=== PATIENT | male | born 1975 | race Caucasian/White ===

== ENCOUNTER 2018-09-15 21:48 | Observation (INO) | payer SELFPAY ==
[2018-09-15 22:20] LABS: Amphetamine Not Detected (NotDetected); Barbiturates Screen Not Detected (NotDetected); Benzodiazepine Screen Not Detected (NotDetected); Cocaine Metabolite Screen Not Detected (NotDetected); Medtox Control Line Valid? VALID (VALID); Medtox Reader # READER 4; Methadone Not Detected (NotDetected); Methamphetamine Not Detected (NotDetected); Opiate Screen Not Detected (NotDetected); Oxycodone Screen Not Detected (NotDetected); Phencyclidine (PCP) Not Detected (NotDetected); THC/Cannabinoid Screen Not Detected (NotDetected); Tricyclic Screen Not Detected (NotDetected)
[2018-09-15 22:28] LABS: #Basophils 0.1 thou/uL (0.0-0.2); #Eosinphils 0.5 thou/uL (0.0-0.7); #Lymphocytes 2.7 thou/uL (1.20-3.40); #Monocytes 0.7 thou/uL (0.11-0.59); %Eosinophils 7.3 % (0.0-10.0); %Lymphocytes 38.4 % (21.0-51.0); %Monocytes 9.5 % (0.0-10.0); %Neutrophils 43.8 % (42.0-75.0); Hemoglobin 14.6 g/dL (14.0-18.0); Mean Corpuscular HGB CONC 32.4 g/dL (32.0-36.0); Mean Corpuscular Hemoglobin 32.7 pg (27.0-31.0); Mean Platelet Volume 7.2 fL (7.4-10.4); Platelet Count 276 thou/uL (130-400); RBC Distribution Width 14.9 % (11.5-14.5); Red Blood Cell (RBC) Count 4.46 mill/uL (4.70-6.10); White Blood Cell (WBC) Count 6.9 thou/uL (4.8-10.8)
[2018-09-15 22:46] LABS: Acetaminophen Less than 6.0 mcg/mL (10.0-30.0); Alcohol 217 mg/dL (Less than 10); Salicylate Less than 8.0 mg/dL (15.0-30.0)
[2018-09-15 22:50] LABS: ALT (SGPT) 17 U/L (8-55); AST (SGOT) 30 U/L (5-34); Albumin 4.5 g/dL (3.5-5.0); Alkaline Phosphatase 81 U/L (40-150); Anion Gap 12 mmol/L (10-20); BUN (Urea Nitrogen) 6 mg/dL (8.9-20.6); Bilirubin, Total 0.3 mg/dL (0.2-1.2); Calc. Creatinine Clearance 0 mL/min (70-130); Calcium 9.1 mg/dL (7.8-10.44); Carbon Dioxide 30 mmol/L (22-29); Chloride 106 mmol/L (98-107); Estimated GFR-MDRD 89; Globulin 2.6 g/dL (2.4-3.5); Glucose 101 mg/dL (70-105); Protein, Total 7.1 g/dL (6.0-8.3); Sodium 144 mmol/L (136-145)
[2018-09-16] MEDS ORDERED: chlordiazePOXIDE HCl 25 MG CAP ONE (00:10)
[2018-09-16] MEDS ORDERED: Acetaminophen 325 MG TAB PO PRN (00:36)
[2018-09-16] MEDS ORDERED: Senokot S 8.6-50 MG TAB PO PRN (00:36)
[2018-09-16] MEDS ORDERED: Lorazepam 2 MG/ML VIAL SLOW IVP PRN (00:38)
[2018-09-16] MEDS ORDERED: Lorazepam 2 MG/ML VIAL ONE (00:42)
[2018-09-16] MEDS ORDERED: Multivitamins, Adult 10 ML, Thiamine HCl 100 MG, Folic Acid 1 MG in Dextrose 5 %-0.45 %... IV ONE (00:45)
[2018-09-16 01:31] VITALS: BMI 31.6
[2018-09-16] MEDS: Multivitamins, Adult 10 ML, Folic Acid 1 MG, Thiamine HCl 100 MG in Dextrose 5 %-0.45 %... IV SCH (01:45)
[2018-09-16 06:07] LABS: #Basophils 0.1 thou/uL (0.0-0.2); #Eosinphils 0.4 thou/uL (0.0-0.7); #Lymphocytes 2.2 thou/uL (1.20-3.40); #Monocytes 0.7 thou/uL (0.11-0.59); #Neutrophils 2.4 thou/uL (1.40-6.50); %Basophils 1.1 % (0.0-1.0); %Eosinophils 7.6 % (0.0-10.0); %Lymphocytes 38.3 % (21.0-51.0); %Monocytes 11.5 % (0.0-10.0); %Neutrophils 41.5 % (42.0-75.0); Hemoglobin 13.6 g/dL (14.0-18.0); Mean Corpuscular HGB CONC 32.7 g/dL (32.0-36.0); Mean Corpuscular Hemoglobin 33.4 pg (27.0-31.0); Mean Platelet Volume 7.4 fL (7.4-10.4); Platelet Count 224 thou/uL (130-400); RBC Distribution Width 14.9 % (11.5-14.5); Red Blood Cell (RBC) Count 4.07 mill/uL (4.70-6.10); White Blood Cell (WBC) Count 5.7 thou/uL (4.8-10.8)
[2018-09-16 06:38] LABS: Anion Gap 13 mmol/L (10-20); BUN (Urea Nitrogen) 6 mg/dL (8.9-20.6); Calc. Creatinine Clearance 157 mL/min (70-130); Calcium 8.4 mg/dL (7.8-10.44); Carbon Dioxide 28 mmol/L (22-29); Chloride 107 mmol/L (98-107); Estimated GFR-MDRD Greater than 90; Glucose 84 mg/dL (70-105); Sodium 144 mmol/L (136-145)
[2018-09-16] MEDS: Famotidine/PF 20 mg/2ml Vial SLOW IVP SCH ×2 (08:29→21:45)
[2018-09-16] MEDS: chlordiazePOXIDE HCl 25 MG CAP PO SCH ×3 (08:29→21:36)
[2018-09-16] MEDS: Citalopram 20 MG TAB PO SCH (08:29)
[2018-09-16] MEDS: Gabapentin 400 MG CAP PO SCH ×3 (08:29→21:36)
[2018-09-16] MEDS: Heparin 5,000 UNITS/ML VIAL SC SCH ×3 (08:29→21:36)
--- NOTE | 2018-09-16 11:58 | HP ---
CHIEF COMPLAINT: "Help with my drinking." HISTORY OF PRESENT ILLNESS: The patient is a very pleasant 43-year-old male with no significant past medical history, who comes into the hospital with wanting help with his alcohol abuse. The patient stated that normally in a day he will drink michael and Coke. Yesterday, he had wine and some other hard liquor, which he is unable to tell me the name. He stated that he drank all day. The patient states that he has been in rehab 5 times and has been unsuccessful. The patient states that he is tired of feeling this way and really needs help. The patient does has a history of DTs and seizures in the past, but has never been intubated. The patient states that this time he wants help and wants to be in rehab. The patient stated the longest he has been sober post rehab was 8 months. PAST MEDICAL HISTORY: Denies any past medical history except for alcohol use. PAST SURGICAL HISTORY: He denies any surgical history. FAMILY HISTORY: Denies any family history of heart disease or alcohol abuse. ALLERGIES: NO KNOWN DRUG ALLERGIES. MEDICATIONS: He takes just [id number] vitamins. REVIEW OF SYSTEMS: All negative for the ones mentioned above in HPI. SOCIAL HISTORY: The patient drinks several drinks throughout the day including hard liquor mostly. Denies any drug use or smoking history. He is a full code. Lives alone. PHYSICAL EXAMINATION: VITAL SIGNS: As of the following; 97.9, 63, 16, 95% on room air, and 110/67. GENERAL: He is awake, alert, and oriented x3. Does not appear in distress. CV: S1 and S2 present. No murmurs, rubs or gallops. HEENT: Normocephalic and atraumatic. No lymphadenopathy noted. Pupils equal and reactive to light. LUNGS: Clear to auscultation. No rhonchi or wheezes noted. ABDOMEN: Soft and nontender. Bowel sounds are present x2. EXTREMITIES: No edema. Pedal pulses are present x2. SKIN: No cuts, lesions, or bruises noted. NEUROVASCULAR: No focal deficits noted. PSYCH: Normal affect. LABORATORY DATA: His laboratory results as of the following; WBCs of 6.9, hemoglobin of 14.6, hematocrit of 45.0, platelets of 276. Chemistry; sodium of 144, potassium 4.0, BUN of 6, and creatinine 0.93. Toxicology indicated possible level of 217 and the recheck 1 was 187. ASSESSMENT AND PLAN: The patient is a very pleasant 43-year-old male, who comes to the hospital for help with alcohol. 1. Alcohol abuse intoxication. The patient has had multiple attempts in rehab; however, has failed, but he is trying to get help this time and wants to have abstinence from alcohol. We will start the patient on a banana bag that has thiamine and folic acid. We will get oil field caser to see the patient. We will also put him on Librium to avoid any DTs and also p.r.n. Ativan. Angiotensin-converting enzyme has been based protocol has been ordered for this patient. 2. Deep venous thrombosis prophylaxis. We will put the patient on subcu heparin. Job ID: [id number]
--- NOTE | 2018-09-16 12:00 | PDOC.PN ---
- Subjective Encounter Start Date: 09/16/18 Encounter Start Time: 11:58 Patient lying in bed resting, he reports doing "alright" he tolerated breakfast this morning, but complains of nausea. He reports chills with mild diaphoresis. Denies chest pain or shortness of breath. - Objective Resuscitation Status - Order Detail: 09/16/18 00:36 Resuscitation Status Routine Resuscitation Status: FULL: Full Resuscitation MAR Reviewed: Yes Vital Signs & Weight: Vital Signs (12 hours) Temp Pulse Resp BP BP Pulse Ox 09/16/18 11:22 98.5 F 56 L 16 141/81 H 96 09/16/18 08:25 133/84 09/16/18 07:11 98.4 F 64 18 133/84 95 09/16/18 04:04 97.9 F 63 16 110/67 110/67 95 09/16/18 01:24 98.3 F 64 16 110/68 110/68 95 Weight Weight 208 lb 6.4 oz I&O: 09/15/18 09/16/18 09/17/18 06:59 06:59 06:59 Intake Total 384 2 Balance 384 2 Result Diagrams: 09/16/18 05:31 09/16/18 05:31 Phys Exam - Physical Examination Constitutional: NAD mild agitated HEENT: PERRLA, oral pharynx no lesions Neck: no nodes, no JVD Respiratory: no wheezing, clear to auscultation bilateral Cardiovascular: RRR, no significant murmur Gastrointestinal: soft, no distention, positive bowel sounds Musculoskeletal: no edema, pulses present Neurological: non-focal, normal sensation, moves all 4 limbs Lymphatic: no nodes Psychiatric: normal affect, A&O x 3 Skin: no rash, normal turgor, cap refill <2 seconds Dx/Plan (1) Alcohol abuse Code(s): F10.10 - ALCOHOL ABUSE, UNCOMPLICATED Status: Acute - Plan cont current plan of care * Continue ASE with librium * Monitor vitals and labs * Patient has been in and out of rehab in the past in [place] * Will provide resources for outpatient rehab facilities * Strongly encouraged sobriety
[2018-09-16] MEDS ORDERED: traZODone HCl 50 MG TAB PO SCH (21:00)
[2018-09-16] MEDS ORDERED: cloNIDine 0.1 MG TAB PO SCH (21:00)
[2018-09-17] MEDS: Multivitamins, Adult 10 ML, Folic Acid 1 MG, Thiamine HCl 100 MG in Dextrose 5 %-0.45 %... IV SCH (00:01)
[2018-09-17] MEDS: chlordiazePOXIDE HCl 25 MG CAP PO SCH ×2 (07:58→16:12)
[2018-09-17] MEDS: Citalopram 20 MG TAB PO SCH (07:58)
[2018-09-17] MEDS: Heparin 5,000 UNITS/ML VIAL SC SCH ×2 (08:00→16:12)
[2018-09-17] MEDS: Gabapentin 400 MG CAP PO SCH ×2 (08:00→16:12)
[2018-09-17] MEDS ORDERED: Famotidine 20 MG TAB PO SCH (09:00)
[2018-09-17 16:10] VITALS: BP 138/80; TEMP 97.8
== END 2018-09-17 16:20 | disposition home or self-care (01) ==
LOC: ERS 21:48 → 2SW 09-16 01:13
PROVIDERS: ADMIT Internal Medicine; ATTEND Internal Medicine
DX: F10.129 Alcohol abuse with intoxication, unspecified (principal); F32.9 Major depressive disorder, single episode, unspecified; F41.9 Anxiety disorder, unspecified; F17.210 Nicotine dependence, cigarettes, uncomplicated; Z79.899 Other long term (current) drug therapy; Z98.84 Bariatric surgery status; Y90.6 Blood alcohol level of 120-199 mg/100 ml
CPT/HCPCS: 36415; 80048; 80053; 80306; 80307; 85025; 96365; 96366; 96374; 96375; 96376; 99406; G0378; J1644; J2060; J3411; J7042; S0028

== ENCOUNTER 2023-06-10 14:12 | Outpatient (CLI) | payer OTHER | END 2023-06-10 14:13 | disposition home or self-care (01) | LOC: ULT 14:12 | DX: I82.401 Acute embolism and thrombosis of unspecified deep veins of right lower extremity (principal) ==